=== PATIENT | male | born 1960 | race Caucasian/White ===

== ENCOUNTER 2023-01-15 15:47 | Inpatient (IN) | payer OTHER ==
[2023-01-15 18:03] VITALS: BMI 30.8
[2023-01-15] MEDS ORDERED: DICYCLOMINE HCL 10 MG CAPSULE PO PRN (22:42)
[2023-01-15] MEDS ORDERED: ACETAMINOPHEN 325 MG TABLET (FP) PO PRN (22:42)
[2023-01-15] MEDS ORDERED: ONDANSETRON *ODT* 4 MG TABLET SL PRN (22:42)
[2023-01-15] MEDS ORDERED: BISMUTH SUBSALICYLATE 524 MG/30 ML PO PRN (22:42)
[2023-01-15] MEDS ORDERED: BENZOCAINE/MENTHOL (CHLORASEPTIC ) LOZENGE MM PRN (22:42)
[2023-01-15] MEDS ORDERED: BENZONATATE 200 MG CAPSULE PO PRN (22:42)
[2023-01-15] MEDS ORDERED: MAG HYDROX/AL HYDROX/SIMETH 30 ML UNIT-DOSE CUP PO PRN (22:42)
[2023-01-15] MEDS ORDERED: guaiFENesin 600 MG TABLET.ER (FP) PO PRN (22:42)
[2023-01-15] MEDS ORDERED: MAGNESIUM HYDROX 2400MG/30ML ORAL SUSPENSION 30 ML CUP PO PRN (22:42)
[2023-01-15] MEDS ORDERED: P-EPHED 60MG/TRIPROLIDI 2.5MG TABLET PO PRN (22:42)
[2023-01-15] MEDS ORDERED: hydrOXYzine PAMOATE 25 MG CAPSULE (FP) PO PRN (22:42)
[2023-01-15] MEDS ORDERED: POLYETHYLENE GLYCOL (HEALTHYLAX) 3350 17 GM PACKET PO PRN (22:42)
[2023-01-15] MEDS ORDERED: LOPERAMIDE HCL 2 MG CAPSULE PO PRN (22:42)
[2023-01-15] MEDS ORDERED: IBUPROFEN 400 MG TABLET (FP) PO PRN (22:42)
[2023-01-15] MEDS ORDERED: chlordiazePOXIDE HCL 25 MG CAPSULE PO PRN (23:02)
[2023-01-15] MEDS: levETIRAcetam 500 MG TABLET (FP) PO SCH (23:46)
[2023-01-15] MEDS: chlordiazePOXIDE HCL 25 MG CAPSULE PO SCH (23:46)
[2023-01-16] MEDS: chlordiazePOXIDE HCL 25 MG CAPSULE PO SCH ×4 (05:28→22:21)
[2023-01-16] MEDS: PRENATAL VITAMINS W/ FOLIC ACID TABLET (FP) PO SCH (10:11)
[2023-01-16] MEDS: levETIRAcetam 500 MG TABLET (FP) PO SCH ×2 (10:11→22:21)
[2023-01-16 11:26] LABS: HEMATOCRIT 44.8 % (35.4-49); HEMOGLOBIN 15.1 GM/dL (11.7-16.9); MCH 31.9 pg (25.7-33.7); MCHC 33.6 g/dl (32.0-35.9); MEAN PLT VOLUME 8.1 fl (7.5-11.1); PLATELET COUNT 192 10^3/uL (134-434); RBC 4.71 M/mm3 (4.00-5.60); RDW 13.2 % (11.9-15.9); WHITE BLOOD COUNT 6.8 K/mm3 (4.0-10.0)
[2023-01-16 11:27] LABS: POTASSIUM 4.2 mmol/L (3.5-5.1)
[2023-01-16 11:29] LABS: CALCIUM 9.1 mg/dL (8.5-10.1)
[2023-01-16 11:30] LABS: BLOOD UREA NITROGEN 14.8 mg/dL (7-18)
[2023-01-16 11:33] LABS: CREATININE 0.9 mg/dL (0.55-1.3)
[2023-01-16 11:34] LABS: BILIRUBIN,TOTAL 0.3 mg/dL (0.2-1)
[2023-01-16] MEDS: MELATONIN 5 MG TABLETS PO SCH (22:21)
[2023-01-16] MEDS: THIAMINE HCL 100 MG TABLET (FP) PO SCH (22:21)
[2023-01-17] MEDS: chlordiazePOXIDE HCL 25 MG CAPSULE PO SCH ×4 (05:30→22:21)
[2023-01-17] MEDS: levETIRAcetam 500 MG TABLET (FP) PO SCH ×2 (10:06→22:21)
[2023-01-17] MEDS: PRENATAL VITAMINS W/ FOLIC ACID TABLET (FP) PO SCH (10:06)
[2023-01-17] MEDS: IBUPROFEN 600 MG TABLET (FP) PO PRN ×2 (10:34→17:55)
[2023-01-17] MEDS ORDERED: PARoxetine HCL 20 MG TABLET PO ONE ×2 (10:45→13:00)
[2023-01-17] MEDS ORDERED: PARoxetine HCL 20 MG TABLET PO SCH (11:58)
[2023-01-17] MEDS: THIAMINE HCL 100 MG TABLET (FP) PO SCH (22:21)
[2023-01-17] MEDS: MELATONIN 5 MG TABLETS PO SCH (22:21)
[2023-01-18] MEDS ORDERED: chlordiazePOXIDE HCL 10 MG CAPSULE PO PRN
[2023-01-18] MEDS: chlordiazePOXIDE HCL 10 MG CAPSULE PO SCH ×4 (05:41→22:11)
[2023-01-18] MEDS: levETIRAcetam 500 MG TABLET (FP) PO SCH ×2 (10:07→22:12)
[2023-01-18] MEDS: PRENATAL VITAMINS W/ FOLIC ACID TABLET (FP) PO SCH (10:07)
[2023-01-18] MEDS: PARoxetine HCL 20 MG TABLET PO SCH (10:07)
[2023-01-18] MEDS: IBUPROFEN 600 MG TABLET (FP) PO PRN ×2 (10:10→17:38)
[2023-01-18] MEDS ORDERED: PARoxetine HCL 20 MG TABLET PO ONE (10:29)
[2023-01-18] MEDS: MELATONIN 5 MG TABLETS PO SCH (22:12)
[2023-01-18] MEDS: THIAMINE HCL 100 MG TABLET (FP) PO SCH (22:12)
[2023-01-19] MEDS: chlordiazePOXIDE HCL 10 MG CAPSULE PO SCH ×2 (05:35→17:45)
[2023-01-19 09:32] VITALS: RESP 18
[2023-01-19] MEDS: PARoxetine HCL 20 MG TABLET PO SCH (10:22)
[2023-01-19] MEDS: levETIRAcetam 500 MG TABLET (FP) PO SCH ×2 (10:22→21:53)
[2023-01-19] MEDS: PRENATAL VITAMINS W/ FOLIC ACID TABLET (FP) PO SCH (10:22)
[2023-01-19] MEDS: IBUPROFEN 600 MG TABLET (FP) PO PRN ×2 (10:23→17:42)
[2023-01-19] MEDS: MELATONIN 5 MG TABLETS PO SCH (21:53)
[2023-01-19] MEDS: THIAMINE HCL 100 MG TABLET (FP) PO SCH (21:53)
[2023-01-20] MEDS ORDERED: chlordiazePOXIDE HCL 10 MG CAPSULE PO ONE (05:00)
[2023-01-20 11:15] VITALS: BP 122/95; PULSE 90; TEMP 96.8
[2023-01-20] MEDS: levETIRAcetam 500 MG TABLET (FP) PO SCH (12:01)
[2023-01-20] MEDS: PRENATAL VITAMINS W/ FOLIC ACID TABLET (FP) PO SCH (12:02)
[2023-01-20] MEDS: PARoxetine HCL 20 MG TABLET PO SCH (12:02)
== END 2023-01-20 09:43 | disposition home or self-care (01) | DRG 897 ==
LOC: YASAS 15:47 → Y3N 23:08
PROVIDERS: ADMIT Allergy & Immunology; ATTEND Surgery
PROC: HZ2ZZZZ Detoxification Services for Substance Abuse Treatment (ICD-10-PCS; principal; 2023-01-15)
DX: F13.230 Sedative, hypnotic or anxiolytic dependence with withdrawal, uncomplicated (principal); F10.20 Alcohol dependence, uncomplicated; F12.20 Cannabis dependence, uncomplicated; F41.9 Anxiety disorder, unspecified; F32.A Depression, unspecified; M15.9 Polyosteoarthritis, unspecified; Z86.59 Personal history of other mental and behavioral disorders
CPT/HCPCS: 36415; 80053; 85027; 86780; 87635